=== PATIENT | male | born 1995 | race Caucasian/White ===

== ENCOUNTER 2018-05-29 11:24 | Emergency (ER) | END 2018-05-29 13:50 | disposition home or self-care (01) ==

== ENCOUNTER 2018-10-21 08:03 | Emergency (ER) | payer BC ==
[~2018-10-21] VITALS: Wt 90.2 kg
[~2018-10-21 08:03] MED LIST: ACET500C5 PO; CEPH-443 PO; NAPR-985 PO
[2018-10-21 08:05] VITALS: BP 124/64; PULSE 92; RESP 18; Wt 90.2 kg
[2018-10-21] MEDS ORDERED: FAMO-96 PO (08:45)
[2018-10-21] MEDS ORDERED: NAPR-985 PO (08:45)
--- NOTE | 2018-10-21 08:49 | ERD ---
ER Documentation Chief Complaint Chief Complaint HAS FLU, WOKE UP WITH CP, DIZZINESS HPI 22-year-old male presenting with chest wall pain. Patient states that he woke up feeling a pressure in his chest. He states that he went to his roommates room and his roommate told him to take deep breaths and about 30 minutes later patient's symptoms have resolved. Patient has a dry cough and denies any fevers. He has never had this before. He had took some antiacid about 6 hours prior to my evaluation. Denies any vomiting. Denies abdominal pain. Denies any medical problems. NKDA. Surgical history is of shoulder surgery. Social history smokes marijuana. ROS All systems reviewed and are negative except as per history of present illness. Medications Home Meds Active Scripts Famotidine* (Pepcid*) 20 Mg Tablet, 20 MG PO BID for 4 Days, #30 TAB Prov:TOMAS HURLEY PA-C 10/21/18 Naproxen* (Naprosyn*) 500 Mg Tablet, 500 MG PO BID PRN for PAIN AND/OR INFLAMMATION, #30 TAB Prov:TOMAS HURLEY PA-C 10/21/18 Cephalexin* (Keflex*) 500 Mg Capsule, 500 MG PO QID for 7 Days, CAP Prov:JOSE BARRETO PA-C 05/29/18 Acetaminophen* (Tylophen*) 500 Mg Capsule, 1 CAP PO Q6H PRN for PAIN AND OR ELEVATED TEMP, #20 CAP Prov:JOSE BARRETO PA-C 05/29/18 Naproxen* (Naprosyn*) 500 Mg Tablet, 500 MG PO BID PRN for PAIN AND/OR INFLAMMATION, #30 TAB Prov:JOSE BARRETO PA-C 05/29/18 Allergies Allergies: Coded Allergies: No Known Allergy (Unverified , 10/21/18) PMhx/Soc Medical and Surgical Hx: pt denies Medical Hx History of Surgery: Yes (R.shoulder ) Anesthesia Reaction: No Hx Neurological Disorder: No Hx Respiratory Disorders: No Hx Cardiac Disorders: No Hx Psychiatric Problems: No Hx Miscellaneous Medical Probl: No Hx Alcohol Use: Yes (social) Hx Substance Use: Yes (marijuana) Hx Tobacco Use: No Smoking Status: Current every day smoker FmHx Family History: No diabetes, No coronary disease, No other Physical Exam Vitals Vital Signs Date Temp Pulse Resp B/P (MAP) Pulse Ox O2 O2 Flow FiO2 Time Delivery Rate 10/21/18 97.7 92 18 124/64 99 08:05 (84) Physical Exam GENERAL: The patient is well-appearing, well-nourished, in no acute distress HEENT: Atraumatic. Conjunctivae are pink. Pupils equal, round, and reactive to light. There is no scleral icterus. Tympanic membranes clear bilaterally. Oropharynx clear. NECK: C-spine is soft and supple. There is no meningismus. There is no cervical lymphadenopathy. CHEST: Clear to auscultation bilaterally. There are no rales, wheezes or rhonchi. HEART: Regular rate and rhythm. No murmurs, clicks, rubs or gallops. ABDOMEN:Soft, nontender and nondistended. Good bowel sounds. No rebound or guarding. No gross peritonitis. No gross organomegaly or masses. No Whiting sign or McBurney point tenderness. Procedures/MDM EKG: Rate/Rhythm: 92 bpm Normal Sinus Rhythm QRS, ST, T-waves: No changes consistent w/ acute ischemia Impression: No evidence of ischemia or arrhythmia DIAGNOSTIC IMAGING REPORT Patient: HALLIE GONZALEZ : 1995 Age: 22 Sex: M MR #: [id number] DOS: 10/21/18 0816 Ordering MD: SIDRA HURLEY PA-C Location: [facility] Room/Bed: PROCEDURE: XR Chest. CLINICAL INDICATION: chest pain TECHNIQUE: Single frontal view of the chest was obtained COMPARISON: None FINDINGS: The heart and mediastinum are within normal limits. The lungs are clear. There is no pleural effusion or pneumothorax. RPTAT: AA IMPRESSION: No acute disease. MDM: 22-year-old male presenting with chest wall pain. I have low suspicion for cardiac or pulmonary emergency. Patient's chest x-ray is within normal limits, vitals are within normal limits, exam is non-concerning and EKG is within normal limits. Patient symptoms resolved with breathing techniques at home which may indicate patient may have underlying anxiety symptoms. I do not feel that further blood work or imaging is indicated. Patient is discharged with supportive medications and recommend to follow-up with primary care. Patient is told symptoms change or worsen to return immediately to the ER. All questions at discharge Departure Diagnosis: Primary Impression: Chest wall pain Condition: Stable Patient Instructions: Chest Pain, Uncertain Cause Referrals: [facility] YOU HAVE RECEIVED A MEDICAL SCREENING EXAM AND THE RESULTS INDICATE THAT YOU DO NOT HAVE A CONDITION THAT REQUIRES URGENT TREATMENT IN THE EMERGENCY DEPARTMENT. FURTHER EVALUATION AND TREATMENT OF YOUR CONDITION CAN WAIT UNTIL YOU ARE SEEN IN YOUR DOCTORS OFFICE WITHIN THE NEXT 1-2 DAYS. IT IS YOUR RESPONSIBILITY TO MAKE AN APPOINTMENT FOR FOLOW-UP CARE. IF YOU HAVE A PRIMARY DOCTOR --you should call your primary doctor and schedule an appointment IF YOU DO NOT HAVE A PRIMARY DOCTOR YOU CAN CALL OUR PHYSICIAN REFERRAL HOTLINE AT IF YOU CAN NOT AFFORD TO SEE A PHYSICIAN YOU CAN CHOSE FROM THE FOLLOWING [facility] [address] [facility]. [facility] [address] [facility]. [facility] [address] [facility] [address] [facility]. [facility] [address] [facility]. [facility] [address] Additional Instructions: FOLLOW UP WITH YOUR PRIMARY CARE PHYSICIAN TOMORROW.Return to this facility if you are not improving as expected. TOMAS HURLEY PA-C Oct 21, 2018 08:49
== END 2018-10-21 08:51 | disposition home or self-care (01) ==
LOC: FTE 08:03
DX: R07.89 Other chest pain (principal); F17.210 Nicotine dependence, cigarettes, uncomplicated
CPT/HCPCS: 71045; 93005